=== PATIENT | male | born 2000 | race American Indian/Alaskan Native ===

== ENCOUNTER 2021-10-20 11:52 | Emergency (ER) | payer OTHER ==
[2021-10-20 12:54] VITALS: BP 133/89
--- NOTE | 2021-10-20 13:07 | Emergency Department Report ---
- General Chief Complaint: Sore Throat Stated Complaint: THROAT PAIN Time Seen by Provider: 10/20/21 12:24 Source: patient Mode of arrival: Ambulatory Limitations: No Limitations - History of Present Illness Initial Comments: Patient is a 21-year-old male presents emergency room complaints of a sore throat that began a week ago. He has associated discomfort with swallowing. He is able to tolerate p.o. intake. He states he is also been having rhinorrhea, congestion, cough. He denies any fever, vomiting, diarrhea. No past medical history. No allergies to medications. He denies any known sick contacts. He states he recently traveled to [place]. He has not been vaccinated for COVID-19. - Related Data Previous Rx's Medication Instructions Recorded Last Taken Type Amoxicillin [Trimox CAP] 500 mg PO BID 10 Days #20 capsule 10/20/21 Unknown Rx Nystas/Diphen/Xyl Visc/Mylanta 30 ml MM Q4H PRN #300 ml 10/20/21 Unknown Rx [Magic Mouthwash] Allergies Allergy/AdvReac Type Severity Reaction Status Date / Time No Known Allergies Allergy Unverified 10/20/21 11:56 ED Review of Systems ROS: Stated complaint: THROAT PAIN Other details as noted in HPI Comment: All other systems reviewed and negative ED Past Medical Hx - Past Medical History Previous Medical History?: No - Surgical History Past Surgical History?: No - Medications Home Medications: Home Medications Medication Instructions Recorded Confirmed Last Taken Type Amoxicillin [Trimox CAP] 500 mg PO BID 10 Days #20 capsule 10/20/21 Unknown Rx Nystas/Diphen/Xyl Visc/Mylanta 30 ml MM Q4H PRN #300 ml 10/20/21 Unknown Rx [Magic Mouthwash] ED Physical Exam - General Limitations: No Limitations General appearance: alert, in no apparent distress - Head Head exam: Present: atraumatic, normocephalic - Eye Eye exam: Present: normal appearance - ENT ENT exam: Present: mucous membranes moist, TM's normal bilaterally, normal external ear exam, other (posterior oropharynx erythema, no tonsillar hypertrophy or exudates, uvula is midline, no uvular edema or deviation, no trismus, no tongue elevation, no muffled voice) - Respiratory Respiratory exam: Present: normal lung sounds bilaterally. Absent: respiratory distress, wheezes, rales, rhonchi, stridor, chest wall tenderness, accessory muscle use, decreased breath sounds, prolonged expiratory - Cardiovascular Cardiovascular Exam: Present: regular rate, normal rhythm, normal heart sounds. Absent: systolic murmur, diastolic murmur, rubs, gallop - Neurological Exam Neurological exam: Present: alert, oriented X3 - Psychiatric Psychiatric exam: Present: normal affect, normal mood - Skin Skin exam: Present: warm, dry, intact ED Course Vital Signs 10/20/21 10/20/21 11:57 12:52 Temperature 98.1 F 99.0 F Pulse Rate 74 80 Respiratory 15 14 Rate Blood Pressure 135/82 Blood Pressure 133/89 [Right] O2 Sat by Pulse 98 98 Oximetry ED Medical Decision Making - Medical Decision Making Patient is a 21-year-old male presents emergency room complaints of a sore throat that began a week ago. He has associated discomfort with swallowing. He is able to tolerate p.o. intake. He states he is also been having rhinorrhea, congestion, cough. He denies any fever, vomiting, diarrhea. No past medical history. No allergies to medications. He denies any known sick contacts. He states he recently traveled to [place]. He has not been vaccinated for COVID-19. Vitals are normal. On exam:posterior oropharynx erythema, no tonsillar hypertrophy or exudates, uvula is midline, no uvular edema or deviation, no trismus, no tongue elevation, no muffled voice. Rapid strep is positive. Patient given prescription for medication. Advised patient Please take medication as prescribed. Increase your fluid intake. After you have been on antibiotics for 24 hours throw your toothbrush and obtain a new toothbrush. Do not drink after others or allow others to drink after you. Gargle with warm salt water. Return to emergency room for any new or worsening symptoms. Critical care attestation.: If time is entered above; I have spent that time in minutes in the direct care of this critically ill patient, excluding procedure time. ED Disposition Clinical Impression: Strep pharyngitis URI (upper respiratory infection) Qualifiers: URI type: unspecified URI Qualified Code(s): J06.9 - Acute upper respiratory infection, unspecified Disposition: 01 HOME / SELF CARE / HOMELESS Is pt being admited?: No Does the pt Need Aspirin: No Condition: Stable Instructions: Upper Respiratory Infection, Adult, Strep Throat, Adult, [id number] Additional Instructions: Please take medication as prescribed. Increase your fluid intake. After you have been on antibiotics for 24 hours throw your toothbrush and obtain a new toothbrush. Do not drink after others or allow others to drink after you. Gargle with warm salt water. Return to emergency room for any new or worsening symptoms. Prescriptions: Nystas/Diphen/Xyl Visc/Mylanta [Magic Mouthwash] 30 ml MM Q4H PRN #300 ml PRN Reason: sore throat Amoxicillin [Trimox CAP] 500 mg PO BID 10 Days #20 capsule Referrals: PRIMARY CARE, [Primary Care Provider] - 2-3 Days Time of Disposition: 13:06 Print Language: KHMER
== END 2021-10-20 13:16 | disposition home or self-care (01) ==
LOC: ED 11:52
DX: J02.0 Streptococcal pharyngitis (principal); B95.0 Streptococcus, group A, as the cause of diseases classified elsewhere; Z79.899 Other long term (current) drug therapy
CPT/HCPCS: 87430; 99283